=== PATIENT | female | born 1965 | race Caucasian/White ===

== ENCOUNTER → 2023-12-15 14:44 | Outpatient (REF) | payer BC, SELFPAY | LOC: WDC 14:44 | PROVIDERS: ATTENDING PHYSICIAN Obstetrics & Gynecology; FAMILY PHYSICIAN Nurse Practitioner Adult Health | DX: R92.2 Inconclusive mammogram (principal) | CPT/HCPCS: 76641 ==

== ENCOUNTER → 2023-12-27 13:25 | Outpatient (REF) | payer BC, SELFPAY | LOC: HWRAD 13:25 | PROVIDERS: ATTENDING PHYSICIAN Nurse Practitioner Adult Health | DX: Z78.0 Asymptomatic menopausal state (principal) | CPT/HCPCS: 77080 ==

== ENCOUNTER → 2024-02-02 09:48 | Outpatient (REF) | payer BC, SELFPAY | LOC: RAD 09:48 | PROVIDERS: ATTENDING PHYSICIAN Nurse Practitioner Adult Health | DX: R22.42 Localized swelling, mass and lump, left lower limb (principal) | CPT/HCPCS: 93971 ==

== ENCOUNTER → 2024-02-23 12:03 | Outpatient (REF) | payer BC, SELFPAY | LOC: WDC 12:03 | PROVIDERS: ATTENDING PHYSICIAN Obstetrics & Gynecology; FAMILY PHYSICIAN Nurse Practitioner Adult Health | DX: Z12.31 Encounter for screening mammogram for malignant neoplasm of breast (principal) | CPT/HCPCS: 77063; 77067 ==

== ENCOUNTER → 2024-03-08 14:33 | Outpatient (REF) | payer BC, SELFPAY | LOC: HWEVLT 14:33 | PROVIDERS: ATTENDING PHYSICIAN Radiology Vascular & Interventional Radiology | DX: I83.892 Varicose veins of left lower extremity with other complications (principal) | CPT/HCPCS: 93971 ==

== ENCOUNTER → 2024-04-28 11:03 | Outpatient (REF) | payer BC, SELFPAY | LOC: RAD 11:03 | PROVIDERS: ATTENDING PHYSICIAN Registered Nurse; FAMILY PHYSICIAN Nurse Practitioner Adult Health | DX: S99.922A Unspecified injury of left foot, initial encounter (principal) | CPT/HCPCS: 73660 ==

== ENCOUNTER 2024-04-29 09:18 | Emergency (ER) | payer BC, SELFPAY ==
[2024-04-29 09:28] VITALS: BP 105/57
--- NOTE | 2024-04-29 10:01 | ED.GENMED ---
Addendum entered and electronically signed by Neil Nicole Jr., PA-C 05/02/24 09:00:
Ed Corey: Patient found to have Pseudomonas on culture. Patient started on ciprofloxacin.
Original Note:
History of Present Illness
General
Chief Complaint: Musculo-Skeletal Complaint
Source: patient
Time Seen by Provider: 04/29/24 09:56
History of Present Illness
History of Present Illness:
58yoF with no significant past medical history presenting for evaluation of left great toe pain. She started to notice the pain 5 days ago after going to the gym. She denies any specific injury. Pain has been gradually worsening. She was seen by
her PCP yesterday who thought she may have a fracture. She was sent for x-rays which came back negative. She is here with persistent pain and new discoloration. No fevers or chills.
Past History
Past History
ED Past Medical History: None and Other (Irritable bowel disease as teenager )
ED Past Surgical History: Appendectomy
Social History
Tobacco: Non-smoker
Personal:
Living: with family
Employment: Employed
Phy Exam
General Physical Exam
General Presentation: well appearing and no apparent distress
General age: appears stated age
General Skin: warm and dry
General Habitus: normal
General Mental: alert
ENT Exam
ENT Exam: normocephalic
Pulmonary Exam
Pulmonary Exam: no respiratory distress
J[place] Coma Scale
Eye Opening: Spontaneous
Verbal Response: Oriented
Motor Response: Obeys Commands
GCS Total Score: 15
Musculoskeletal Exam
Musculoskeletal Exam: other (L great toe: Paronychia noted to the medial nail fold with surrounding swelling, erythema, and warmth. No crepitus or pain out of proportion. No red streaking proximally. 2+ DP pulse.)
Skin Exam
Skin Exam: warm/dry
Psychiatric Exam
Psychiatric Exam: normal mood/affect
Course
Orders/Labs/Results
Orders:
Orders
04/29/24 10:44
Cast Shoe Left-Treatment ONCE
04/29/24 10:54
Wound Culture [Wound/Abscess/Other Culture] Urgent
CHANT[facility] Source: Abscess
Specimen Description:
Date Specimen was Collected: 04/29/24
Time Specimen was Collected: 10:49
Comment: L great toe
Vital Signs
Initial and Last Documented VS:
Initial Vital Signs
Temp Pulse Resp BP Pulse Ox
98.3 F 61 16 105/57 98
04/29/24 09:28 04/29/24 09:28 04/29/24 09:28 04/29/24 09:28 04/29/24 09:28
Last Documented Vital Signs
Temp Pulse Resp BP Pulse Ox
98.3 F 61 16 105/57 98
04/29/24 09:28 04/29/24 09:28 04/29/24 09:28 04/29/24 09:28 04/29/24 09:28
Procedures
Incision/Drainage/Joint Aspiration
Left First Toe:
Anethesia: 1% Lidocaine
Preparation: cleaned with Betadine
Type of procedure: incise and drain
Nature of site: abscess
Description of abscess: less than 3cm
How much fluid was obtained?: small amount (moderate)
Fluid description: purulent
Treatment: left open for drainage, antibiotics started and bandaid applied
MDM/Problems Addressed
Differential Diagnosis Includes:
58yoF here with L great toe pain x 5 days. No reported injuries other than dropping a weight on her toe several weeks ago. Outpatient x-rays yesterday are negative for fractures. VSS. There is a paronychia noted on exam with surrounding cellulitis.
No lymphangitic streaking. No evidence of osteomyelitis noted on x-rays yesterday.
I&D performed with return of moderate purulence and wound culture sent. She was started on a course of Keflex. Advised warm soap water soaks TID. Advised f/u with podiatry and ED return precautions discussed. She was discharged in stable condition.
*Critical Care Note
Total Time (30-74mins, 75-104mins- exclusive of procedures): Not Applicable
ED Attending Note
-
Portions of this chart may have been created with voice recognition software.� Occasional wrong word or��sound alike� substitutions may have occurred due to the inherent limitations of voice recognition software.
Discharge Plan
Departure
Patient Disposition: Home (Routine Discharge)
Date of Disposition: 04/29/24
Time of Disposition: 10:44
Patient with high blood pressure during this ER visit?: No
Discharge Problem:
Paronychia of great toe of left foot
Instructions: Paronychia ED
Prescriptions:
New
cephalexin 500 mg capsule
500 mg PO Q6H 7 Days Qty: 28 0RF
Referrals:
Lissy Carrera CRNP [Family Provider] -
Faina Alegre DPM [Specified Professional Personl] -
Activity Restrictions/Additional Instructions:
Take antibiotics as prescribed. Do warm soap water soaks 3x daily. Take Tylenol and ibuprofen for pain.
Please follow-up with your category analyst. Return to the ER with any worsening symptoms, fevers, or spreading redness.
Interventions
Interventions:
*Risk Screen - Suicide Last Done: 04/29/24 09:28
*Neglect/Abuse Screening Last Done: 04/29/24 09:28
*Nursing Disposition Last Done: 04/29/24 11:00
ED-Musculoskeletal Assessment Last Done: 04/29/24 11:00
Discharge Date and Time
Discharge Date/Time: 04/29/24 11:01
Print Language: SWEDISH
== END 2024-04-29 11:01 | disposition home or self-care (01) ==
LOC: EMR 09:18
PROVIDERS: EMERGENCY PHYSICIAN Emergency Medicine; FAMILY PHYSICIAN Nurse Practitioner Adult Health
DX: L03.039 Cellulitis of unspecified toe (principal); K58.9 Irritable bowel syndrome, unspecified
CPT/HCPCS: 99283; 10060; 87070; 87186; 87205

== ENCOUNTER → 2024-06-14 09:26 | Outpatient (REF) | payer BC, SELFPAY | LOC: HWEVLT 09:26 | PROVIDERS: ATTENDING PHYSICIAN Radiology Diagnostic Radiology | DX: I83.892 Varicose veins of left lower extremity with other complications (principal) | CPT/HCPCS: 36478; C1769 ==

== ENCOUNTER → 2024-06-28 14:51 | Outpatient (REF) | payer BC, SELFPAY | LOC: HWEVLT 14:51 | PROVIDERS: ATTENDING PHYSICIAN Radiology Diagnostic Radiology | DX: I83.892 Varicose veins of left lower extremity with other complications (principal) | CPT/HCPCS: 93971 ==

== ENCOUNTER → 2025-02-26 10:52 | Outpatient (REF) | payer OTHER, SELFPAY | LOC: WDC 10:52 | PROVIDERS: ATTENDING PHYSICIAN Obstetrics & Gynecology; FAMILY PHYSICIAN Nurse Practitioner Adult Health | DX: Z12.31 Encounter for screening mammogram for malignant neoplasm of breast (principal) | CPT/HCPCS: 77063; 77067 ==